=== PATIENT | female | born 1975 | race Caucasian/White ===

== ENCOUNTER 2021-06-29 19:27 | Emergency (ER) | payer SELFPAY ==
[~2021-06-29 19:27] MED LIST: ADVA1AER2 IN; ALBUTEROL LIQ INH; ALLE25CA OR; COLA100C2 OR; GABA600T3 OR; HYDROCODONE/APAP PO; LODINE OR; METH1TAB40 OR; PRENATAL VITAMIN OR; SING10TA31 OR; SKEL800T5 OR; TOPI25TA2 OR; TRAZ50TA OR; VICO5TAB OR; ZANA4CAP OR; ZANT150T OR; ZOLO100T OR; [UNRECOGNIZED DRUG - CODE] IM
[2021-06-29 19:35] VITALS: BP 110/75
== END 2021-06-30 00:36 | disposition left against medical advice (07) ==
LOC: M ED 19:27
DX: Z53.29 Procedure and treatment not carried out because of patient's decision for other reasons (principal)

== ENCOUNTER → 2022-06-15 | Outpatient (REF) | payer OTHER, MEDICAID | LOC: M LAB REF 13:58 | PROVIDERS: ATTEND Nurse Practitioner Family | DX: R19.7 Diarrhea, unspecified (principal) ==